=== PATIENT | female | born 1950 | race Caucasian/White ===

== ENCOUNTER 2017-11-13 21:26 | Outpatient (REF) | payer MEDICARE, SELFPAY ==
[2017-11-21 13:44] LABS: Helicobacter pylori Ag, Feces Negative (NEGAT)
== END 2017-11-13 21:27 ==
LOC: NCHCN 21:26
PROVIDERS: PCP Nurse Practitioner Family; Visit Provider Nurse Practitioner Family
DX: K21.9 Gastro-esophageal reflux disease without esophagitis (principal)
CPT/HCPCS: 87338

== ENCOUNTER 2019-11-22 14:24 | Outpatient (REF) | payer MEDICARE, SELFPAY ==
[2019-11-26 01:59] LABS: SARS-CoV-2 RNA Undetected (Undetected)
== END 2019-11-22 14:44 ==
LOC: NCHCN 14:24
PROVIDERS: PCP Nurse Practitioner Family; Visit Provider Nurse Practitioner Family
DX: Z11.59 Encounter for screening for other viral diseases (principal)
CPT/HCPCS: U0003

== ENCOUNTER 2020-09-15 15:38 | Outpatient (REF) | payer MEDICARE, SELFPAY ==
[2020-09-15 21:29] LABS: ALT 162 U/L (14-59); AST 42 U/L (15-37); Albumin 4.1 g/dL (3.4-5.0); Alkaline Phosphatase 139 U/L (46-116); Anion Gap 8.3 mmol/L (3-11); BUN 9 mg/dL (7-18); Bilirubin, Total 0.4 mg/dL (0.2-1.0); CO2 28.7 mmol/L (21.0-32.0); CREATININE 0.9 mg/dL (0.55-1.02); Calcium 9.2 mg/dL (8.5-10.1); Calculated LDL 137 mg/dL (<100); Chloride 105 mmol/L (98-107); Cholesterol 230 mg/dL (<200); Glucose 82 mg/dL (74-106); HDL Cholesterol 85 mg/dL (40-60); Potassium 4.1 mmol/L (3.5-5.1); Sodium 142 mmol/L (136-145); Total Protein 7.1 g/dL (6.4-8.2); Triglyceride 42 mg/dL (<150)
== END 2020-09-15 15:39 | disposition home or self-care (01) ==
LOC: NCHCN 15:38
PROVIDERS: PCP Nurse Practitioner Family; Visit Provider Nurse Practitioner Family
DX: R79.89 Other specified abnormal findings of blood chemistry (principal)
CPT/HCPCS: 80053; 80061

== ENCOUNTER 2022-05-10 16:39 | Outpatient (REF) | payer MEDICARE, SELFPAY ==
[2022-05-10 21:40] LABS: ALT 21 U/L (14-59); AST 22 U/L (15-37); Albumin 4.1 g/dL (3.4-5.0); Alkaline Phosphatase 69 U/L (46-116); Anion Gap 6.6 mmol/L (3-11); BUN 16 mg/dL (7-18); Bilirubin, Total 0.3 mg/dL (0.2-1.0); CO2 29.4 mmol/L (21.0-32.0); CREATININE 0.9 mg/dL (0.55-1.02); Calcium 9.4 mg/dL (8.5-10.1); Calculated LDL 150 mg/dL (<100); Chloride 104 mmol/L (98-107); Cholesterol 262 mg/dL (<200); Estimated GFR 68.77 (mL/min/1.73m2); Glucose 91 mg/dL (74-106); HDL Cholesterol 98 mg/dL (40-60); Potassium 3.9 mmol/L (3.5-5.1); Sodium 140 mmol/L (136-145); Total Protein 7.5 g/dL (6.4-8.2); Triglyceride 72 mg/dL (<150)
[2022-05-10 21:57] LABS: Vitamin D 25 Total 49.1 ng/mL (30-100)
== END 2022-05-10 16:40 | disposition home or self-care (01) ==
LOC: NCHCN 16:39
PROVIDERS: PCP Nurse Practitioner Family; Visit Provider Nurse Practitioner Family
DX: E78.5 Hyperlipidemia, unspecified (principal); R79.89 Other specified abnormal findings of blood chemistry; F32.89 Other specified depressive episodes; Z79.899 Other long term (current) drug therapy
CPT/HCPCS: 80053; 80061; 82306

== ENCOUNTER 2024-04-02 16:20 | Outpatient (REF) | payer MEDICARE, SELFPAY ==
[2024-04-02 17:30] LABS: Calculated LDL 90 mg/dL (<100); Cholesterol 202 mg/dL (<200); HDL Cholesterol 101 mg/dL (40-60); Triglyceride 55 mg/dL (<150)
== END 2024-04-02 16:21 | disposition home or self-care (01) ==
LOC: NCHCN 16:20
PROVIDERS: PCP Nurse Practitioner Family; Visit Provider Family Medicine
DX: E78.5 Hyperlipidemia, unspecified (principal)
CPT/HCPCS: 80061

== ENCOUNTER 2024-12-06 10:22 | Outpatient (REF) | payer MEDICARE, SELFPAY ==
[2024-12-06 15:00] LABS: HCT 42.8 % (36.0-46.0); HGB 14.5 g/dL (11.2-15.7); MCH 33.0 pg (27.0-33.0); MCHC 33.9 % (32.0-36.0); MCV 97 fL (80-95); MPV 10.4 fL (8.0-11.0); Platelet Count 336 10^3/uL (130-400); RBC 4.40 10^6/uL (3.93-5.22); RDW 11.3 % (11.7-14.6); RDW-SD 40.0 fL; WBC 4.64 10^3/uL (4.4-10.8)
[2024-12-06 15:48] LABS: ALT 43 U/L (14-59); AST 37 U/L (15-37); Albumin 4.2 g/dL (3.4-5.0); Alkaline Phosphatase 68 U/L (46-116); Anion Gap 6.5 mmol/L (3-11); BUN 12 mg/dL (7-18); Bilirubin, Total 0.6 mg/dL (0.2-1.0); CO2 30.5 mmol/L (21.0-32.0); Calcium 9.6 mg/dL (8.5-10.1); Calculated LDL 98 mg/dL (<100); Chloride 103 mmol/L (98-107); Cholesterol 208 mg/dL (<200); Estimated GFR 67.92 (mL/min/1.73m2); Glucose 105 mg/dL (74-106); HDL Cholesterol 99 mg/dL (>or=50); Potassium 4.6 mmol/L (3.5-5.1); Sodium 140 mmol/L (136-145); Total Protein 7.5 g/dL (6.4-8.2); Triglyceride 56 mg/dL (<150)
== END 2024-12-06 10:23 | disposition home or self-care (01) ==
LOC: NCHCN 10:22
PROVIDERS: PCP Nurse Practitioner Family; Visit Provider Family Medicine
DX: E78.5 Hyperlipidemia, unspecified (principal)
CPT/HCPCS: 80053; 80061; 85027